=== PATIENT | male | born 1960 | race African-American/Black ===

== ENCOUNTER 2018-10-29 17:06 | Inpatient (IN) | payer MEDICAID, MEDICARE ==
[~2018-10-29] VITALS: Ht 157.5 cm; Wt 66.8 kg
[2018-10-29 18:38] VITALS: BP 140/70
[2018-10-29] MEDS ORDERED: HALOPERIDOL 5 MG TABLET PO PRN (18:45)
[2018-10-29] MEDS ORDERED: ZOLPIDEM TARTRATE 10 MG TABLET PO PRN (18:45)
[2018-10-29] MEDS ORDERED: LORazepam 1 MG TABLET PO PRN (18:45)
[2018-10-29] MEDS: CarBAMazepine 200 MG TABLET PO SCH (22:12)
[2018-10-29] MEDS: AmLODIPine BESYLATE 5 MG TABLET PO SCH (22:13)
[2018-10-29] MEDS ORDERED: PNEUMOCOCCAL VACCINE POLYVALENT 0.5 ML VIAL [PPSV23] IM ONE (22:15)
[2018-10-29 22:28] VITALS: BP 142/82
[2018-10-30 00:38] VITALS: BP 137/81
[2018-10-30 08:08] VITALS: BP 145/92
[2018-10-30] MEDS: AmLODIPine BESYLATE 5 MG TABLET PO SCH (08:33)
[2018-10-30] MEDS: ARIPiprazole 10 MG TABLET PO SCH (12:31)
[2018-10-30] MEDS: FLUoxetine HCL 20 MG CAPSULE PO SCH (12:31)
[2018-10-30] MEDS ORDERED: PETROLATUM,WHITE 28 GM JELLY TP PRN (13:30)
[2018-10-30] MEDS ORDERED: MAG HYDROX/AL HYDROX/SIMETH ES 30 ML SUSPENSION UDCUP PO PRN (13:30)
[2018-10-30] MEDS ORDERED: ONDANSETRON HCL 4 MG TABLET PO PRN (13:30)
[2018-10-30] MEDS ORDERED: ALBUTEROL SULFATE HFA 90 MCG/PUFF 8 GM INHALER IH PRN (13:30)
[2018-10-30] MEDS ORDERED: NICOTINE 14 MG/24 HOUR PATCH TD PRN (13:30)
[2018-10-30] MEDS ORDERED: DOCUSATE SODIUM 100 MG CAPSULE PO PRN (13:30)
[2018-10-30] MEDS ORDERED: MAGNESIUM HYDROXIDE SUSPENSION 30 ML UDCUP PO PRN (13:30)
[2018-10-30] MEDS ORDERED: LOPERAMIDE HCL 2 MG CAPSULE PO PRN (13:30)
[2018-10-30] MEDS ORDERED: GuaiFENesin/D-METHORPHAN [SUGAR-FREE] 200-20MG/10 ML SYRUP UDCUP PO PRN (13:30)
[2018-10-30] MEDS ORDERED: ACETAMINOPHEN 325 MG TABLET PO PRN (13:30)
[2018-10-30] MEDS ORDERED: CloNIDine HCL 0.1 MG TABLET PO PRN (13:30)
[2018-10-30] MEDS ORDERED: IBUPROFEN 400 MG TABLET PO PRN (13:30)
[2018-10-30 16:04] VITALS: BP 140/69
[2018-10-30] MEDS: TraZODone HCL 100 MG TABLET PO SCH (20:33)
[2018-10-30] MEDS: CarBAMazepine 200 MG TABLET PO SCH (20:34)
[2018-10-31 00:05] VITALS: BP 134/92
[2018-10-31 08:20] VITALS: BP 121/77
[2018-10-31] MEDS: ARIPiprazole 10 MG TABLET PO SCH (08:23)
[2018-10-31] MEDS: AmLODIPine BESYLATE 5 MG TABLET PO SCH (08:23)
[2018-10-31] MEDS: FLUoxetine HCL 20 MG CAPSULE PO SCH (08:23)
[2018-10-31 08:24] LABS: BASOPHILS % (AUTO) 0.6 % (0.0-2.0); EOSINOPHILS % (AUTO) 2.5 % (1.0-6.0); HEMATOCRIT 41.5 % (41-53); HEMOGLOBIN 13.3 g/dL (13.5-17.5); LYMPHOCYTES # (AUTO) 1.6 K/uL (1.0-4.8); LYMPHOCYTES % (AUTO) 37.4 % (22.0-44.0); MEAN CORPUSCULAR HEMOGLOBIN 27.8 pg (26.0-34.0); MEAN CORPUSCULAR HGB CONC 31.9 G/dL (31.0-37.0); MEAN CORPUSCULAR VOLUME 87 fL (80-100); MONOCYTES # (AUTO) 0.3 K/uL (0.1-1.0); MONOCYTES % (AUTO) 7.8 % (2.0-9.0); NEUTROPHILS # (AUTO) 2.2 K/uL (1.8-7.7); NEUTROPHILS % (AUTO) 51.7 % (40.0-70.0); PLATELET COUNT (AUTO) 187 K/uL (150-450); RED BLOOD CELL COUNT(AUTO) 4.78 MIL/uL (4.50-5.90); RED CELL DISTRIBUTION WIDTH 15.2 % (11.5-14.5)
[2018-10-31 09:02] LABS: ALANINE AMINOTRANSFERASE 15 U/L (12-78); ALBUMIN 3.6 g/dL (3.4-5.0); ALKALINE PHOSPHATASE 67 U/L (46-116); ANION GAP 9 mmol/L (8-16); ASPARTATE AMINOTRANSFERASE 16 U/L (15-37); BILIRUBIN,TOTAL 0.1 mg/dL (0.1-1.0); CARBON DIOXIDE 26 mmol/L (22-29); CHLORIDE 103 mmol/L (98-107); CHOL/HDL RATIO 3.6 (4.2-7.3); CHOLESTEROL 154 mg/dL (131-200); CREATININE 0.73 mg/dL (0.60-1.30); FREE T4 (FREE THYROXINE) 0.82 ng/dL (0.76-1.46); GLOMERULAR FILTR. RATE CALC > 60 mL/min (>60); GLUCOSE,RANDOM 90 mg/dL (70-110); HDL CHOLESTEROL 43 mg/dL (40-60); LDL CHOL (CALC.) 103 mg/dL (0-130); SODIUM SERUM 138 mmol/L (136-145); THYROID STIMULATING HORMONE 0.68 uIU/mL (0.36-3.74); TOTAL PROTEIN, SERUM 6.7 g/dL (6.4-8.2); TRIGLYCERIDES 40 mg/dL (15-150)
[2018-10-31 09:30] LABS: UREA NITROGEN, BLOOD 14 mg/dL (7-18)
[2018-10-31 16:11] VITALS: BP 129/73
[2018-10-31] MEDS: CarBAMazepine 200 MG TABLET PO SCH (20:31)
[2018-10-31] MEDS: TraZODone HCL 100 MG TABLET PO SCH (20:32)
[2018-11-01 00:06] VITALS: BP 122/68
[2018-11-01] MEDS: FLUoxetine HCL 20 MG CAPSULE PO SCH (08:02)
[2018-11-01] MEDS: ARIPiprazole 10 MG TABLET PO SCH (08:02)
[2018-11-01] MEDS: AmLODIPine BESYLATE 5 MG TABLET PO SCH (08:02)
[2018-11-01 08:44] VITALS: BP 134/78
[2018-11-01 16:12] VITALS: BP 116/77
[2018-11-01] MEDS: TraZODone HCL 100 MG TABLET PO SCH (20:37)
[2018-11-01] MEDS: CarBAMazepine 200 MG TABLET PO SCH (20:37)
[2018-11-02 00:10] VITALS: BP 132/78
[2018-11-02 08:25] VITALS: BP 128/83
[2018-11-02] MEDS ORDERED: FLUoxetine HCL 20 MG CAPSULE PO SCH (09:00)
[2018-11-02] MEDS: ARIPiprazole 10 MG TABLET PO SCH (09:59)
[2018-11-02] MEDS: AmLODIPine BESYLATE 5 MG TABLET PO SCH (10:00)
[2018-11-02] MEDS ORDERED: TRAZ-220 PO (10:40)
[2018-11-02] MEDS ORDERED: FLUO-191 PO (10:40)
[2018-11-02] MEDS ORDERED: CARB200T6 PO (10:40)
[2018-11-02] MEDS ORDERED: ARIP10TA8 PO (10:40)
[2018-11-02] MEDS ORDERED: AMLO5TAB4 PO (10:41)
== END 2018-11-02 13:47 | disposition home or self-care (01) | DRG 750 ==
LOC: B2X 19:40 → B2S 11-01 07:56
PROVIDERS: ATTEND Psychiatry & Neurology Psychiatry
DX: F25.9 Schizoaffective disorder, unspecified (principal); Z91.14 Patient's other noncompliance with medication regimen; D72.819 Decreased white blood cell count, unspecified; F32.9 Major depressive disorder, single episode, unspecified; I10 Essential (primary) hypertension
CPT/HCPCS: 84439; 84443